=== PATIENT | female | born 1995 | race Caucasian/White ===

== ENCOUNTER 2022-05-22 20:04 | Emergency (ER) | payer OTHER ==
[2022-05-22 20:12] VITALS: BP 119/77; PULSE 66; RESP 20; TEMP 98.1; BMI 26.6
== END 2022-05-22 21:15 | disposition home or self-care (01) ==
LOC: JERFT 20:04
PROC: 0HQGXZZ Repair Left Hand Skin, External Approach (ICD-10-PCS; principal; 2022-05-22)
DX: S61.012A Laceration without foreign body of left thumb without damage to nail, initial encounter (principal); W26.0XXA Contact with knife, initial encounter
CPT/HCPCS: 99282-25

== ENCOUNTER 2022-06-01 17:00 | Emergency (ER) | payer OTHER ==
[2022-06-01 17:44] VITALS: BP 105/72; PULSE 57; RESP 18; TEMP 98.2; BMI 26.9
== END 2022-06-01 18:06 | disposition home or self-care (01) ==
LOC: JER 17:00 → JERFT 17:00
DX: Z48.02 Encounter for removal of sutures (principal)
CPT/HCPCS: 99281-25